=== PATIENT | male | born 1960 | race Caucasian/White ===

== ENCOUNTER 2020-07-28 12:34 | Emergency (ER) | payer MEDICAID ==
[~2020-07-28] VITALS: Ht 185.4 cm; Wt 95.3 kg
[2020-07-28] MEDS ORDERED: PEPCID AC10 MG PO (12:56)
[2020-07-28] MEDS ORDERED: LIPITOR 20 MG T20 M1 PO (12:56)
[2020-07-28] MEDS ORDERED: LISINOPRIL-HCT1 EAC2 PO (12:56)
[2020-07-28 13:28] LABS: URINE BILIRUBIN NEGATIVE (Negative); URINE BLOOD NEGATIVE (Negative); URINE CLARITY CLEAR; URINE COLOR YELLOW; URINE GLUCOSE-RANDOM NEGATIVE (Negative); URINE KETONES NEGATIVE (Negative); URINE LEUKOCYTES-REFLEX NEGATIVE (Negative); URINE NITRITE-REFLEX NEGATIVE (Negative); URINE PROTEIN NEGATIVE (Negative); URINE UROBILINOGEN 0.2 E.U./dl (0.2-1.0)
[2020-07-28] MEDS ORDERED: FLEXERIL PO (14:29)
[2020-07-28] MEDS ORDERED: NORCO 5-325 TA1 EAC2 PO (14:29)
[2020-07-28 14:44] VITALS: BP 117/70
== END 2020-07-28 14:47 | disposition home or self-care (01) ==
LOC: M.ERS 12:34
PROVIDERS: Emergency Medicine Emergency Medical Services
DX: M54.6 Pain in thoracic spine (principal); M54.5 Low back pain; I10 Essential (primary) hypertension; E78.00 Pure hypercholesterolemia, unspecified; K21.9 Gastro-esophageal reflux disease without esophagitis; Z79.899 Other long term (current) drug therapy